=== PATIENT | male | born 1950 | race Caucasian/White ===

== ENCOUNTER 2023-12-09 21:35 | Emergency (ER) | payer MEDICARE, OTHER, SELFPAY ==
[2023-12-09 21:40] VITALS: BP 135/92
[2023-12-09] MEDS: ADACEL 0.5 ML IM (22:24)
--- NOTE | 2023-12-09 22:24 | ED.GENMED ---
History of Present Illness
<ERICKA Tee - Last Filed: 12/09/23 22:40>
General
Chief Complaint: Skin Surface Trauma
Time Seen by Provider: 12/09/23 22:03
Travel History
Have you had any contact with someone who has COVID-19?: No
Do you have any symptoms of coronavirus? Fever > 100 degrees, chills, cough, shortness of breath, sore throat, loss of taste or smell, muscle aches, or headache?: No
History of Present Illness
History of Present Illness:
Pt is a 73 year old male with a PMHx of HTN presenting for puncture wound on his right medial ankle. Pt states he was out in his garden this afternoon with a wheelbarrow, ran over a pole with a rust nail in it, causing the kristal nail on the pole to
swing up and hit him in the ankle. He states this occurred at noon. He reports the pain was not very noticeable until 4pm when the pain began to increase, aching up towards his right thigh. He reports associated swelling and warmth. Pt notes his
last Tdap was almost 10 years ago and his PCP advised he come to the ER to get an updated Tdap. He reports he cleaned the wound immediately after the injury occurred and applied Neosporin. He reports taking 2 extra strength Tylenol which helped
decrease his pain slightly. He denies N/V and denies taking blood thinners. Pt reports he has had mild swelling of his right foot since beginning treatment for psoriasis several weeks ago and is insure if that is related to his puncture wound.
Past History
<ERICKA Tee - Last Filed: 12/09/23 22:40>
Past History
ED Past Medical History: HTN
ED Past Surgical History: Tonsilectomy
Social History
Tobacco: Non-smoker
Alcohol: Occasional
Drug: None
Personal:
Living: with family
Employment: Employed (Education)
Family History
Family History: Other (n/c)
Review of Systems
<ERICKA Tee - Last Filed: 12/09/23 22:40>
Review of Systems
All Other Systems: Not applicable
Constitutional: Reports no symptoms
EENT: Reports no symptoms
Respiratory: Reports no symptoms
Cardiac: Reports no symptoms
ABD/GI: Reports no symptoms
: Reports no symptoms
Musculoskeletal: Reports joint pain, joint swelling and muscle pain
Skin: Reports other (redness)
Neurological: Reports no symptoms
Endocrine: Reports no symptoms
Hematologic/Lymphatic: Reports no symptoms
Psychiatric: Reports no symptoms
Phy Exam
<ERICKA Tee - Last Filed: 12/09/23 22:40>
General Physical Exam
General Presentation: well appearing and no apparent distress
General age: other
General Skin: warm and feels hot (right foot and ankle)
General Habitus: normal
General Mental: alert
General Hydration: appears well hydrated
Neurological Exam
Neurological Exam: alert and oriented x3
Musculoskeletal Exam
Musculoskeletal Exam: edema (right medial malleolus and foot ), joint swelling (right ankle), neuro vasc intact and other (normal strength of both ankles; mild TTP to right medial malleolus)
Skin Exam
Skin Exam: erythema (of right ankle and foot), redness (of right ankle and foot), tenderness (of right ankle and foot), warmth (of right ankle and foot) and other (puncture would of right medial malleolus; no red streaking upwards from site of
puncture)
Psychiatric Exam
Psychiatric Exam: normal mood/affect
Course
<ERICKA Tee - Last Filed: 12/09/23 22:40>
Orders/Labs/Results
Orders:
Orders
12/09/23 22:13
Tetanus/Diphth/Acelpertussis [Adacel] 0.5 ml IM .ONCE ONE
12/09/23 22:24
Ankle, Right 3 view CR [CR Ankle - Right Min 3 Views *] Urgent
Comment:
Reason For Exam: puncture wound, medial malleolus
12/09/23 22:25
Cephalexin Monohydrate [Keflex] 500 mg PO NOW STA
Ibuprofen [Motrin] 600 mg PO NOW STA
Vital Signs
Initial and Last Documented VS:
Initial Vital Signs
Temp Pulse Resp BP Pulse Ox
98.4 F 69 16 135/92 99
12/09/23 21:40 12/09/23 21:40 12/09/23 21:40 12/09/23 21:40 12/09/23 21:40
Last Documented Vital Signs
Temp Pulse Resp BP Pulse Ox
98.4 F 69 16 135/92 99
12/09/23 21:40 12/09/23 21:40 12/09/23 21:40 12/09/23 21:40 12/09/23 21:40
<Gris Morley, - Last Filed: 12/09/23 23:56>
Orders/Labs/Results
Orders:
Orders
12/09/23 22:13
Tetanus/Diphth/Acelpertussis [Adacel] 0.5 ml IM .ONCE ONE
12/09/23 22:24
Ankle, Right 3 view CR [CR Ankle - Right Min 3 Views *] Urgent
Comment:
Reason For Exam: puncture wound, medial malleolus
12/09/23 22:25
Cephalexin Monohydrate [Keflex] 500 mg PO NOW STA
Ibuprofen [Motrin] 600 mg PO NOW STA
Vital Signs
Initial and Last Documented VS:
Initial Vital Signs
Temp Pulse Resp BP Pulse Ox
98.4 F 69 16 135/92 99
12/09/23 21:40 12/09/23 21:40 12/09/23 21:40 12/09/23 21:40 12/09/23 21:40
Last Documented Vital Signs
Temp Pulse Resp BP Pulse Ox
98.4 F 69 16 135/92 99
12/09/23 21:40 12/09/23 21:40 12/09/23 21:40 12/09/23 21:40 12/09/23 21:40
<ERICKA Tee - Last Filed: 12/09/23 22:40>
MDM/Problems Addressed
Differential Diagnosis Includes:
Puncture wound, cellulitis, retained foreign body, tetanus
MDM/Problems Addressed:
puncture wound of right medial malleolus with a kristal nail x this afternoon
Chronic conditions affecting care: HTN
<ERICKA Tee - Last Filed: 12/09/23 22:40>
*Critical Care Note
Total Time (30-74mins, 75-104mins- exclusive of procedures): Not Applicable
<Gris Morley DO - Last Filed: 12/09/23 23:56>
*Radiology
Radiology exam reviewed: preliminary read by ED provider ( Right ankle x-rays unremarkable.)
*Pulse Oximetry
Patient hypoxic: no
ED Attending Note
<ERICKA Tee - Last Filed: 12/09/23 22:40>
-
Portions of this chart may have been created with voice recognition software.� Occasional wrong word or��sound alike� substitutions may have occurred due to the inherent limitations of voice recognition software.
<Gris Morley DO - Last Filed: 12/09/23 23:56>
ED Attending Note
Patient seen and examined by attending physician: Yes
I performed the substantive portion of visit, reviewed & personally made and approve the management plan that is documented in note by myself or AMERICA.: Yes
I performed a history and physical exam of patient and discussed management with resident, I reviewed resident's note and agree with documented findings and plan of care.: Yes
ED Attending Note:
This is a kristie 73-year-old gentleman who has history of hypertension, maintained on lisinopril who presents for evaluation of puncture wound right medial ankle which he sustained this morning while working in his garden he intermittently stepped
on a piece of wood that swung around and struck his right medial ankle. This piece of wood had a kristal nail protruding from it and he states the nail is what punctured his medial ankle. He did thoroughly cleanse the area immediately after injury.
He complains of mildly progressive local pain, redness and swelling of his right medial ankle with occasional radiation of pain from his ankle up his medial lower leg. He denies weakness nor numbness. He did not suffer a fall nor twisting injury
to his ankle. He denies foot pain, no weakness nor numbness.
He is overdue for Tdap; unsure as to his last immunization.
He took 2 Tylenol approximately 1 and half hours ago, thus far no significant improvement in pain.
Focal swelling right medial ankle seems to 'come and go' throughout the day today.
He did notify his PCP and was instructed to come to the ED for further evaluation.
He has no risk factors for immunocompromise.
PHYSICAL EXAMINATION:
General: 73-year-old gentleman appears younger than stated age, bright and alert, pleasant, appears in no acute distress. Sitting upright on edge of stretcher. Easily communicative.
HEENT: Normocephalic, atraumatic. Oral mucosa is moist.
LUNGS: Respirations are easy and nonlabored. Lungs are clear to auscultation.
Neuro: alert and oriented. no focal neurological deficits. Motor strength is 5/5 bilaterally. Gross sensation is intact. Very minimally antalgic gait favoring right lower extremity.
Psychiatric: well kept. interactive and cooperative
Musculoskeletal: [Right medial ankle has a puncture wound mid aspect with very minimal surrounding soft tissue swelling and very minimal surrounding erythema. There is no drainage nor bleeding. No lymphangitis. Mild local
tenderness to palpation. There is no lymphangitis. Full ankle range of motion with mildly increased pain with inversion/eversion. There is no tenderness to the lower leg nor knee, no tenderness to the foot. Peripheral pulses are full and equal
bilaterally. No distal edema. Sensation and strength intact.
Patient presents with puncture wound from reported kristal nail right medial ankle.
Will update Tdap.
Due to local soft tissue swelling, erythema concern for potential bony abnormality, other consideration is retained foreign body, will check x-ray.
Will initiate Keflex for potential early cellulitis.
Will give ibuprofen for pain.]
12/09/2023 2355 PM
Patient feeling improved after ibuprofen. Resting comfortably.
Right ankle x-rays unremarkable, no evidence of fracture nor retained foreign body.
Will discharge to home with prescription for Keflex and prescription for ibuprofen.
Wound care instructions discussed.
Prompt follow-up with PCP for recheck.
Return precautions discussed.
Discharge Plan
Departure
Patient Disposition: Home (Routine Discharge)
Date of Disposition: 12/09/23
Time of Disposition: 23:53
Patient with high blood pressure during this ER visit?: No
Condition: Good
Discharge Problem:
puncture wound right medial ankle
Instructions: Taking care of cuts, scrapes, and puncture wounds, Puncture Wound
Prescriptions:
New
cephalexin 500 mg capsule
1,000 mg PO BID 10 Days Qty: 40 0RF
ibuprofen 600 mg tablet
600 mg PO QID PRN (Reason: fever or pain) Qty: 20 0RF
Discontinued
metaxalone [Skelaxin] 800 MG tablet
800 mg PO TIDPRN Qty: 30 0RF
hydrocodone-acetaminophen 1 TABLET tablet
1 tab PO Q4HPRN PRN (Reason: pain) Qty: 20 0RF
prednisone 50 MG tablet
50 mg PO DAILY Qty: 3 0RF
epinephrine [EpiPen] 0.3 MG/0.3/SYRINGE auto-injector
0.3 mg IM .STAT PRN (Reason: anaphylactic reaction) Qty: 1 0RF
Rx Instructions:
take immediately with shortness of breath, tongue or throat swelling, trouble breathing/wheezing, vomiting or any other concerns and come directly to the ER
diphenhydramine HCl [Banophen] 25 MG capsule
25 mg PO Q6 PRN (Reason: itch/rash) Qty: 30 0RF
Rx Instructions:
take as directed on your discharge instructions
Zantac 150 MG tablet
150 mg PO BID Qty: 6 0RF
Referrals:
Shashank Wolf MD [Family Provider] - Call in 1-3 days for appt
Interventions
Interventions:
*Risk Screen - Suicide Last Done: 12/09/23 21:40
*General Assessment Last Done: 12/09/23 21:40
*Neglect/Abuse Screening Last Done: 12/09/23 21:40
*ED COVID-19 Vaccine History Last Done: 12/09/23 21:40
ED-Skin Assessment Last Done: 12/09/23 22:15
Discharge Date and Time
Print Language: YEMENI
[2023-12-09] MEDS: MOTRIN 600 MG PO (23:05)
[2023-12-09] MEDS: KEFLEX 500 MG PO (23:06)
[2023-12-09 23:59] VITALS: BP 115/73
== END 2023-12-10 | disposition home or self-care (01) ==
LOC: EMR 21:35
PROVIDERS: EMERGENCY PHYSICIAN Emergency Medicine; FAMILY PHYSICIAN Family Medicine
DX: S91.031A Puncture wound without foreign body, right ankle, initial encounter (principal); W45.0XXA Nail entering through skin, initial encounter; Z23 Encounter for immunization; I10 Essential (primary) hypertension
CPT/HCPCS: 99284; 90471; 73610; 90715

== ENCOUNTER 2024-07-27 16:04 | Emergency (ER) | payer MEDICARE, OTHER, SELFPAY ==
[2024-07-27 16:07] VITALS: BP 125/78
--- NOTE | 2024-07-27 16:34 | ED.GENMED ---
History of Present Illness
General
Chief Complaint: Skin Surface Trauma
Time Seen by Provider: 07/27/24 16:33
History of Present Illness
History of Present Illness:
TIME OF INITIAL ENCOUNTER: 4:40 PM
HPI: Patient comes in for evaluation after a bite from a vaccinated dog to the left hand. He has no other concerns.
EXAM:
GENERAL: Well appearing in no distress
HEENT: Moist oral mucosa
NEUROLOGIC: Excellent strength all extremities, no obvious coordination deficits
PSYCHIATRIC: Appropriate mental status, normal insight and judgement
EXTREMITIES: Nontender, no edema, moves all extremities equally
SKIN: 3 cm laceration to the midpoint of the dorsal aspect of the left hand which is rather deep
NUMBER AND COMPLEXITY OF PROBLEMS ADDRESSED AT THE ENCOUNTER
� Chronic conditions affecting care: High blood pressure
� Acute Exacerbation and/or Progression of Chronic Illness: This is an acute problem
� Differential Diagnosis includes: Dog bite wound, laceration, foreign body not noted
AMOUNT AND/OR COMPLEXITY OF DATA TO BE REVIEWED AND ANALYZED
� I performed an independent evaluation of and my interpretation is:
EKG:
CT:
X-rays:
Laboratory Studies:
Other:
� Review of other/old records: The patient was seen here in the Emergency Department in November of this year related to a puncture wound at the right ankle
� Clinical information was obtained by an independent historian: None needed
� Prescriptions/Medications Considered but not given:
� Further testing considered but not performed:
RISK OF COMPLICATIONS AND/OR MORBIDITY OR MORTALITY OF PATIENT MANAGEMENT
� Social determinants of health affecting care: Lives at home, tetanus status up-to-date
� Discussion with other providers:
� Escalation of care including admission/observation vs risk of discharge considered: Considered holding off on any suturing however the wound is rather deep therefore placed 2 loose stitches.
ANY OTHER UPDATES:
Past History
Past History
ED Past Medical History: HTN
ED Past Surgical History: Tonsilectomy
Social History
Tobacco: Non-smoker
Alcohol: Occasional
Drug: None
Personal:
Living: with family
Employment: Employed (Education)
Family History
Family History: Other (n/c)
Phy Exam
Physical Exam
Physical Exam:
See HPI
Course
Orders/Labs/Results
Orders:
Orders
07/27/24 16:46
Amoxicillin 875 mg/Clav 125 mg [Augmentin 875 mg/125 mg] 1 tablet PO NOW STA
Vital Signs
Initial and Last Documented VS:
Initial Vital Signs
Temp Pulse Resp BP Pulse Ox
98 F 63 16 125/78 99
07/27/24 16:07 07/27/24 16:07 07/27/24 16:07 07/27/24 16:07 07/27/24 16:07
Last Documented Vital Signs
Temp Pulse Resp BP Pulse Ox
98 F 63 16 125/78 99
07/27/24 16:07 07/27/24 16:07 07/27/24 16:07 07/27/24 16:07 07/27/24 16:07
Procedures
Laceration Closure
Left Dorsal Hand:
Status of Wound: clean
Size of Wound in cm: 3
Description of Wound Edges: sharp
Preparation: cleaned with saline and other (Patient used hydrogen peroxide prior to arrival)
Revision/Debridement: routine- no revision
Wound exploration: explored to base- no FB
Type of Closure: single layer closure
Skin Closure Material: 4-0 prolene
Number of sutures: 2
*Critical Care Note
Total Time (30-74mins, 75-104mins- exclusive of procedures): Not Applicable
ED Attending Note
-
Portions of this chart may have been created with voice recognition software.� Occasional wrong word or��sound alike� substitutions may have occurred due to the inherent limitations of voice recognition software.
Discharge Plan
Departure
Patient Disposition: Home (Routine Discharge)
Date of Disposition: 07/27/24
Time of Disposition: 16:46
Patient with high blood pressure during this ER visit?: Yes
Discharge Problem:
Dog bite, Hand laceration
Instructions: Wound Care (DC), Animal Bites ED, Laceration
Prescriptions:
New
amoxicillin-pot clavulanate 875-125 mg tablet
1 tab PO BID Qty: 10 0RF
No Action
cephalexin 500 mg capsule
1,000 mg PO BID 10 Days Qty: 40 0RF
ibuprofen 600 mg tablet
600 mg PO QID PRN (Reason: fever or pain) Qty: 20 0RF
Referrals:
Shashank Wolf MD [Family Provider] -
Activity Restrictions/Additional Instructions:
Have stitches removed by your primary care doctor in approximately 7 to 10 days. Next dose of antibiotics tomorrow.
Interventions
Interventions:
*Risk Screen - Suicide Last Done: 07/27/24 16:07
*Neglect/Abuse Screening Last Done: 07/27/24 16:07
ED-Skin Assessment Last Done: 07/27/24 16:23
Discharge Date and Time
Print Language: PALESTINIAN
[2024-07-27] MEDS: AUGMENTIN 875 MG/125 MG 1 TABLET PO (16:54)
== END 2024-07-27 17:01 | disposition home or self-care (01) ==
LOC: EMR 16:04
PROVIDERS: EMERGENCY PHYSICIAN Emergency Medicine; FAMILY PHYSICIAN Family Medicine
DX: S61.412A Laceration without foreign body of left hand, initial encounter (principal); W54.0XXA Bitten by dog, initial encounter; I10 Essential (primary) hypertension
CPT/HCPCS: 12002; 99283

== ENCOUNTER 2025-04-13 12:05 | Emergency (ER) | payer MEDICARE, OTHER, SELFPAY ==
[2025-04-13 12:15] VITALS: BP 108/68
[2025-04-13 13:46] VITALS: BP 103/75
[2025-04-13 14:00] VITALS: BP 108/73
--- NOTE | 2025-04-13 14:19 | ED.SKININJ ---
HPI-Injury
General
Chief Complaint: Bite
Source: patient
Exam Limitations: none
Time Seen by Provider: 04/13/25 14:10
History of Present Illness-Injury
Initial Injury comments:
74-year-old male with known past significant allergy to bee stings presents with 2 stings he sustained on his left hand and left elbow. He started developing a rash and 10 minutes afterwards he gave himself an EpiPen. Since then the rash has
persisted in the lower stomach and groin but denies any throat closing nausea vomiting abdominal pain shortness of breath. Spoke with his family doctor who sent him here for evaluation.
Past History
Past History
ED Past Medical History: HTN
ED Past Surgical History: Tonsilectomy
Social History
Tobacco: Non-smoker
Alcohol: Occasional
Drug: None
Personal:
Living: with family
Employment: Employed (Education)
Family History
Family History: Other (n/c)
Phy Exam
Physical Exam
Physical Exam:
General: Well-appearing male no acute respiratory distress
HEENT: Normocephalic atraumatic posterior pharynx patent neck is
Heart: Regular rate and rhythm
Lungs: Clear no wheeze or stridor
Skin: Rash noted to the lower abdomen and inguinal region bilaterally
Extremities: No cyanosis
Course
Orders/Labs/Results
Orders:
Orders
04/13/25 14:17
Dexamethasone Sod Phosphate [Decadron] 10 mg IV NOW STA
Diphenhydramine [Benadryl] 25 mg IV NOW STA
04/13/25 14:18
Famotidine [Pepcid] 20 mg IV NOW STA
Vital Signs
Initial and Last Documented VS:
Initial Vital Signs
Temp Pulse Resp BP Pulse Ox
98.4 F 68 16 108/68 98
04/13/25 12:15 04/13/25 12:15 04/13/25 12:15 04/13/25 12:15 04/13/25 12:15
Last Documented Vital Signs
Temp Pulse Resp BP Pulse Ox
98.4 F 56 18 112/80 99
04/13/25 12:15 04/13/25 15:00 04/13/25 15:00 04/13/25 15:00 04/13/25 15:00
MDM/Problems Addressed
Differential Diagnosis Includes:
Allergic reaction to bee sting. Right now no respiratory distress this is status post self administered EpiPen at home. Will administer Decadron Benadryl and Pepcid in hopes to avoid rebound. No respiratory distress.
*Pulse Oximetry
SaO2: 98
Oxygen Mode of Delivery: Room air
Patient hypoxic: no
*Critical Care Note
Total Time (30-74mins, 75-104mins- exclusive of procedures): Not Applicable
Update Note
Update Note:
Patient reevaluated rash significantly improved. No indication for any further intervention. Will discharge home with refill of his EpiPen
ED Attending Note
-
Portions of this chart may have been created with voice recognition software.� Occasional wrong word or��sound alike� substitutions may have occurred due to the inherent limitations of voice recognition software.
Discharge Plan
Departure
Patient Disposition: Home (Routine Discharge)
Date of Disposition: 04/13/25
Time of Disposition: 16:03
Patient with high blood pressure during this ER visit?: No
Discharge Problem:
Bee sting
Prescriptions:
New
epinephrine [EpiPen] 0.3 mg/0.3 mL auto-injector
0.3 mg IM .STAT PRN (Reason: anaphylaxis) Qty: 1 0RF
No Action
cephalexin 500 mg capsule
1,000 mg PO BID 10 Days Qty: 40 0RF
ibuprofen 600 mg tablet
600 mg PO QID PRN (Reason: fever or pain) Qty: 20 0RF
amoxicillin-pot clavulanate 875-125 mg tablet
1 tab PO BID Qty: 10 0RF
Referrals:
Shashank Wolf MD [Family Provider, Family Practice]
Activity Restrictions/Additional Instructions:
Use Benadryl every 4 hours if needed. Please fill your EpiPen prescription. Use this as needed for severe reactions. Return if worse otherwise
Interventions
Interventions:
*Risk Screen - Suicide Last Done: 04/13/25 12:15
*General Assessment Last Done: 04/13/25 14:32
*Neglect/Abuse Screening Last Done: 04/13/25 12:15
*ED- Fall Risk Assessment Last Done: 04/13/25 14:32
*ED COVID-19 Vaccine History Last Done: 04/13/25 14:32
ED-Skin Assessment Last Done: 04/13/25 14:32
Discharge Date and Time
Print Language: BENGALI
[2025-04-13] MEDS: BENADRYL 25 MG IV (14:35)
[2025-04-13] MEDS: DECADRON 10 MG IV (14:35)
[2025-04-13] MEDS: PEPCID 20 MG IV (14:36)
[2025-04-13 15:00] VITALS: BP 112/80
[2025-04-13 16:00] VITALS: BP 121/91
== END 2025-04-13 16:40 | disposition home or self-care (01) ==
LOC: EMR 12:05
PROVIDERS: EMERGENCY PHYSICIAN Emergency Medicine; FAMILY PHYSICIAN Family Medicine
DX: T63.441A Toxic effect of venom of bees, accidental (unintentional), initial encounter (principal); I10 Essential (primary) hypertension
CPT/HCPCS: 99282; 96374; 96375